=== PATIENT | female | born 1960 | race Caucasian/White ===

== ENCOUNTER 2020-05-23 14:26 | Outpatient (CLI) | payer OTHER, SELFPAY ==
--- NOTE | ~2020-05-23 | XR_ITS ---
XR chest 2V 05/23/2020 14:46 Indication: Chronic obstructive pulmonary disease with acute exacerbation. Procedure: 2 view chest Comparison: 08/03/2019 Findings: There is a cavitary nodule in the right middle lobe with air-fluid level. There are surroun ding infiltrates of the right mid and lower lung which may represent atelectasis, scarring or pneumon ia. Impression: 1: Infiltrates of the right mid and lower lung with cavitary lesion. Differential diagnosis includes atelectasis, scarring and/or pneumonia. Consider correlation with CT chest. Reviewed, dictated and finalized at location A. Impression: 1: Infiltrates of the right mid and lower lung with cavitary lesion. Differenti al diagnosis includes atelectasis, scarring and/or pneumonia. Consider correlat ion with CT chest.
== END 2020-05-23 14:27 | disposition home or self-care (01) ==
LOC: CHSLAB 14:28
PROVIDERS: PCP Nurse Practitioner Family; Visit Provider Nurse Practitioner Family
DX: J44.1 Chronic obstructive pulmonary disease with (acute) exacerbation (principal)
CPT/HCPCS: 71046

== ENCOUNTER 2020-05-30 07:37 | Outpatient (CLI) | payer OTHER, SELFPAY ==
--- NOTE | ~2020-05-30 | MM_ITS ---
EXAMINATION: MM screening fariba BI w nitza HISTORY: Screening mammogram TECHNIQUE: Craniocaudal and mediolateral oblique 3-D tomosynthesis images were obtained and synthetic 2-D images were generated. CAD analysis was submitted and interpreted. COMPARISON: No prior mammogram is available for comparison at this institution. BREAST PARENCHYMAL COMPOSITION: There are scattered areas of fibroglandular density. FINDINGS: RIGHT BREAST: A mass is present in the middle third outer breast 6 cm from the nipple. No suspicious calcification or architectural distortion are. LEFT BREAST: There is no evidence of suspicious mass, calcification, or architectural distortion to s uggest malignancy. There has been no significant interval change. IMPRESSION: 1. Right breast mass which may represent the patient's baseline however no comparison is currently av ailable. 2. Comparison with prior mammograms is necessary. BI-RADS Category 0: Incomplete: Needs comparison with prior mammograms. Reviewed, dictated and finalized at location A. IMPRESSION: 1. Right breast mass which may represent the patient's baseline however no comp arison is currently available. 2. Comparison with prior mammograms is necessary. BI-RADS Category 0: Incomplete: Needs comparison with prior mammograms.
--- NOTE | ~2020-05-30 | CT_ITS ---
EXAMINATION: CT chest wo con DATE: 05/30/2020 07:55 INDICATION: Cough, shortness of breath. Abnormal 05/23/2020 chest radiograph with suggestion of infilt rates of right mid and lower lung and possible cavitary lesion TECHNIQUE: Computed tomography (CT) of the chest was performed without intravenous contrast. Automate d exposure control and iterative reconstruction technique were employed. Exam dose: 455.19 mGy-cm to bekah exam DLP. COMPARISON: 05/23/2022 view chest 08/03/2019 and 08/02/2019 2 view chest radiographic examinations FINDINGS: There are prominent cardiophrenic fat pads bilaterally. There is a prominent band of discoi d atelectasis or more likely scarring at the middle lobe. There is another prominent band of discoid atelectasis or scarring in the right lower lobe. No pulmonary infiltrate or consolidation or pulmonary mass lesion or any cavitary lesion is identifie d. No pulmonary consolidation or pulmonary mass lesion is evident. Normal heart size. There is trace pericardial fluid. No hilar or mediastinal mass lesion or lymphadenopathy. Small sliding hiatal hernia. Normal morphology of the adrenal glands. No suspicious osteolytic or osteoblastic lesions. IMPRESSION: Discoid atelectasis and/or scarring in the right lung Small sliding hiatal hernia Reviewed, dictated and finalized at [facility]. Reviewed, dictated and finalized at location B.
== END 2020-05-30 07:38 | disposition home or self-care (01) ==
LOC: CHSIMG 07:39
PROVIDERS: PCP Nurse Practitioner Family; Visit Provider Nurse Practitioner Family
DX: R91.8 Other nonspecific abnormal finding of lung field (principal); Z12.31 Encounter for screening mammogram for malignant neoplasm of breast
CPT/HCPCS: 71250; 77063; 77067

== ENCOUNTER 2021-04-05 14:17 | Outpatient (NON) | payer OTHER, SELFPAY ==
[2021-04-05 14:41] LABS: Alanine Aminotransferase 36 U/L (14-59); Albumin Level 3.5 g/dL (3.4-5.0); Alkaline Phosphatase 47 U/L (46-116); Anion Gap 9 mmol/L (8-16); Aspartate Amino Transferase 40 U/L (15-37); Bilirubin,Total 0.3 mg/dL (0.00-1.00); Blood Urea Nitrogen 10 mg/dL (7-18); Calcium 9.3 mg/dL (8.5-10.1); Carbon Dioxide 32 mmol/L (21-32); Chloride 99 mmol/L (98-108); Estimated Glomerular Filt Rate > 60; Glucose 105 mg/dL (70-99); Magnesium 1.6 mg/dL (1.8-2.4); Osmolality Calculated 289 mOsm/kg (285-295); Potassium 3.7 mmol/L (3.5-5.1); Sodium 140 mmol/L (136-145); Total Protein 6.9 g/dL (6.4-8.2)
== END 2021-04-05 14:18 | disposition home or self-care (01) ==
LOC: CHSLAB 14:19
PROVIDERS: Visit Provider Nurse Practitioner Family
DX: Z00.00 Encounter for general adult medical examination without abnormal findings (principal); R25.2 Cramp and spasm
CPT/HCPCS: 36415; 80053; 83735

== ENCOUNTER 2021-05-21 12:00 | Outpatient (CLI) | payer OTHER, SELFPAY ==
--- NOTE | ~2021-05-21 | XR_ITS ---
EXAMINATION: XR chest 2V EXAM DATE: 05/21/2021 13:22 INDICATION: COPD, acute exacerbation. Shortness of breath. TECHNIQUE: Frontal and lateral projections of the chest obtained and reviewed. Comparison is made to prior examination from 05/23/2020. FINDINGS: Several linear opacities unchanged, atelectasis or scarring. The lungs are otherwise clear . There are no pleural effusions. The cardiomediastinal silhouette is within normal limits. There is no pneumothorax suspected. The bones and soft tissues are unremarkable. The lungs are hyperinflat ed which can be seen with chronic obstructive pulmonary disease (a clinical diagnosis of functional i mpairment), but is not diagnostic of it. There are no osseous abnormalities identified. There is no s ignificant interval change. IMPRESSION: 1. No acute cardiopulmonary findings. 2. Hyperinflation. Reviewed, dictated and finalized at location B.
[2021-05-21 12:20] LABS: Basophils Absolute Auto 0.04 K/mm3 (0.00-0.10); Basophils Percent Auto 0.4 % (0.0-1.0); Eosinophils Absolute Auto 0.02 K/mm3 (0.02-0.50); Eosinophils Percent Auto 0.2 % (1.0-6.0); Hematocrit 42.2 % (35.0-49.0); Hemoglobin 13.7 g/dL (12.0-15.0); Immature Granulocyte Absolute 0.09 K/mm3 (0.00-0.00); Immature Granulocyte Percent A 0.8 % (0.0-0.0); Lymphocytes Absolute Auto 0.87 K/mm3 (1.10-4.50); Lymphocytes Percent Auto 8.1 % (18.0-42.0); Mean Corpuscular HGB Conc 32.5 g/dL (32.0-36.0); Mean Corpuscular Hemoglobin 31.2 pg (27.0-31.0); Mean Corpuscular Volume 96.1 fL (78.0-102.0); Mean Platelet Volume 8.7 fl (9.2-11.8); Monocytes Absolute Auto 0.33 K/mm3 (0.10-0.90); Monocytes Percent Auto 3.1 % (2.0-11.0); Neutrophils Absolute Auto 9.3 K/mm3 (1.7-7.2); Neutrophils Percent Auto 87.4 % (50.0-70.0); Platelet Count Result 224 K/mm3 (150-420); Red Blood Count 4.39 M/mm3 (4.20-5.40); Red Cell Distribution Width 18.6 % (11.6-14.4); White Blood Count 10.7 K/mm3 (4.8-10.8)
[2021-05-21 12:54] LABS: Alanine Aminotransferase 37 U/L (14-59); Albumin Level 3.4 g/dL (3.4-5.0); Alkaline Phosphatase 56 U/L (46-116); Aspartate Amino Transferase 15 U/L (15-37); Bilirubin,Total 0.3 mg/dL (0.00-1.00); Blood Urea Nitrogen 16 mg/dL (7-18); Calcium 9.2 mg/dL (8.5-10.1); Carbon Dioxide 34 mmol/L (21-32); Estimated Glomerular Filt Rate 55; Glucose 176 mg/dL (70-99); Total Protein 6.3 g/dL (6.4-8.2)
[2021-05-21 15:14] LABS: Anion Gap 3 mmol/L (8-16); Chloride 97 mmol/L (98-107); Osmolality Calculated 283 mOsm/kg (285-295); Potassium 4.3 mmol/L (3.4-5.0); Sodium 134 mmol/L (137-145)
[2021-05-23 09:58] LABS: Hemoglobin A1C 6.3 % (<5.7)
--- NOTE | 2021-05-24 15:09 | WPDPFTINT ---
PFT Procedure Performed PFT Procedure Performed Spirometry with Pre/Post Bronchodilator Plethysmography (Lung Vol) Diffusing Cap (DLCO) Flow Vol Loop PFT Interpretation DOS: 05/21/2021 REQUESTING: Jorge Batista NP REASON FOR TESTING: COPD PULMONARY FUNCTION TESTS Results are reliable and reproducible. Spirometry: FEV1 is 46% predicted, 1.03 L. This is severely decreased. The FVC is 63%, decreased. The FEV1/FVC ratio is decreased at 59% consistent with airflow obstruction. There is no change in flows with bronchodilator administration. Lung volumes: The total lung capacity is 117%, upper limit of normal. Residual volume is severely increased at 111%, consistent with severe air trapping. Airway resistance 244%, increased. Diffusion: DLCO is 50%, moderately decreased. This corrects for alveolar volume to normal, 108%. Flow volume loop: Scooping of the expiratory limb consistent with obstructive physiology. IMPRESSION: This full pulmonary function test shows a severe obstructive ventilatory impairment, severe air trapping, and a moderate diffusion impairment. The lack of response to bronchodilator should not preclude use of clinically indicated. This study is consistent with COPD. Caroline Hayden MD
== END 2021-05-21 12:01 | disposition home or self-care (01) ==
LOC: CHSCARD 12:03
PROVIDERS: PCP Nurse Practitioner Family; Visit Provider Nurse Practitioner Family
DX: J44.1 Chronic obstructive pulmonary disease with (acute) exacerbation (principal); J44.0 Chronic obstructive pulmonary disease with (acute) lower respiratory infection; R73.09 Other abnormal glucose
CPT/HCPCS: 36415; 71046; 80053; 83036; 85025; 94060; 94726; 94729